=== PATIENT | female | born 1970 | race Caucasian/White ===

== ENCOUNTER 2017-10-05 19:40 | Emergency (ER) | payer SELFPAY ==
[2017-10-05] MEDS ORDERED: Lidocaine Viscous Sol 2% 15 ml UD Cup ONE (19:56)
[2017-10-05] MEDS ORDERED: Famotidine 20 MG TAB ONE (19:56)
[2017-10-05] MEDS ORDERED: Donnatal Elixir 16.2 MG/5 ML UDCUP ONE (19:56)
[2017-10-05] MEDS ORDERED: Mag-Al Plus 1200 MG/1200 MG/120 MG/30 ML UDCUP ONE (19:57)
[2017-10-05 20:34] LABS: #Basophils 0.1 thou/uL (0.0-0.2); #Eosinphils 0.5 thou/uL (0.0-0.7); #Lymphocytes 2.5 thou/uL (1.20-3.40); #Monocytes 0.4 thou/uL (0.11-0.59); %Basophils 1.6 % (0.0-1.0); %Eosinophils 6.3 % (0.0-10.0); %Lymphocytes 32.7 % (21.0-51.0); %Monocytes 5.9 % (0.0-10.0); %Neutrophils 53.6 % (42.0-75.0); Hemoglobin 14.1 g/dL (12.0-16.0); Mean Corpuscular HGB CONC 33.5 g/dL (32.0-36.0); Mean Corpuscular Hemoglobin 28.2 pg (27.0-31.0); Mean Corpuscular Volume 84.1 fL (78.0-98.0); Mean Platelet Volume 7.2 fL (7.4-10.4); Platelet Count 266 thou/uL (130-400); RBC Distribution Width 11.3 % (11.5-14.5); Red Blood Cell (RBC) Count 5.01 mill/uL (4.20-5.40); White Blood Cell (WBC) Count 7.5 thou/uL (4.8-10.8)
[2017-10-05 20:45] LABS: Prothrombin Time 13.5 SEC (12.0-14.7)
--- NOTE | 2017-10-05 20:45 | RAD ---
PA AND LATERAL VIEWS OF THE CHEST 10/05/17 HISTORY: Chest pain, nausea, heartburn. FINDINGS: The heart size is normal. The lungs are well expanded without lobar consolidation, pneumothoraces or pleural effusions. No acute osseous abnormalities are seen. IMPRESSION: No radiographic evidence of acute cardiopulmonary process. POS: [facility]
[2017-10-05 20:57] LABS: ALT (SGPT) 17 U/L (8-55); AST (SGOT) 20 U/L (5-34); Albumin 4.4 g/dL (3.5-5.0); Alkaline Phosphatase 83 U/L (40-150); Anion Gap 21 mmol/L (10-20); BUN (Urea Nitrogen) 10 mg/dL (7.0-18.7); Bilirubin, Total 0.2 mg/dL (0.2-1.2); Calc. Creatinine Clearance 0 mL/min (70-130); Calcium 8.7 mg/dL (7.8-10.44); Carbon Dioxide 20 mmol/L (22-29); Chloride 105 mmol/L (98-107); Estimated GFR-MDRD 73; Globulin 3.2 g/dL (2.4-3.5); Glucose 87 mg/dL (70-105); Potassium 3.7 mmol/L (3.5-5.1); Protein, Total 7.6 g/dL (6.0-8.3); Sodium 142 mmol/L (136-145)
[2017-10-05 20:58] LABS: CKMB 1.2 ng/mL (0-6.6); Troponin I Less than 0.010 ng/mL (< 0.028)
[2017-10-05] MEDS ORDERED: Acetaminophen 500 MG TAB ONE (21:45)
[2017-10-05] MEDS ORDERED: Ketorolac Tromethamine 30 MG/ML VIAL ONE (21:45)
== END 2017-10-05 21:57 | disposition home or self-care (01) ==
LOC: MADERS 19:40
DX: R07.89 Other chest pain (principal); K30 Functional dyspepsia; F31.9 Bipolar disorder, unspecified; F41.9 Anxiety disorder, unspecified; Z87.891 Personal history of nicotine dependence
CPT/HCPCS: 71046; 80053; 82553; 84484; 85025; 85610; 85730; 93005; 96374; J1885

== ENCOUNTER 2018-06-01 11:07 | Emergency (ER) | payer SELFPAY | END 2018-06-01 11:40 | disposition home or self-care (01) | LOC: MADERS 11:07 | DX: M25.562 Pain in left knee (principal); F41.9 Anxiety disorder, unspecified; F31.9 Bipolar disorder, unspecified; Z87.891 Personal history of nicotine dependence | CPT/HCPCS: 99281 ==

== ENCOUNTER 2019-01-15 09:33 | Emergency (ER) | payer SELFPAY ==
[2019-01-15] MEDS ORDERED: Aspirin Chewable 81 MG TAB ONE (10:01)
[2019-01-15] MEDS ORDERED: Nitroglycerin 0.4 MG TAB 1 EACH ONE (10:01)
--- NOTE | 2019-01-15 10:08 | RAD ---
2 view chest: [01/15/2019] Comparion:10/05/2017 HISTORY: Chest pain FINDINGS: Heart and mediastinal contours are grossly unremarkable. No pneumothorax or pleural fluid. No focal consolidation or alveolar edema. IMPRESSION: No acute findings.
[2019-01-15 10:15] LABS: #Basophils 0.1 thou/uL (0.0-0.2); #Eosinphils 0.1 thou/uL (0.0-0.7); #Lymphocytes 1.2 thou/uL (1.20-3.40); #Monocytes 0.3 thou/uL (0.11-0.59); #Neutrophils 3.6 thou/uL (1.40-6.50); %Eosinophils 2.8 % (0.0-10.0); %Lymphocytes 22.2 % (21.0-51.0); %Monocytes 6.3 % (0.0-10.0); %Neutrophils 67.7 % (42.0-75.0); Hemoglobin 13.3 g/dL (12.0-16.0); Mean Corpuscular HGB CONC 30.6 g/dL (32.0-36.0); Mean Corpuscular Hemoglobin 27.9 pg (27.0-31.0); Mean Corpuscular Volume 91.3 fL (78.0-98.0); Mean Platelet Volume 7.8 fL (7.4-10.4); Platelet Count 260 thou/uL (130-400); RBC Distribution Width 12.1 % (11.5-14.5); Red Blood Cell (RBC) Count 4.78 mill/uL (4.20-5.40); White Blood Cell (WBC) Count 5.3 thou/uL (4.8-10.8)
[2019-01-15 10:34] LABS: ALT (SGPT) 15 U/L (8-55); AST (SGOT) 17 U/L (5-34); Albumin 4.2 g/dL (3.5-5.0); Alkaline Phosphatase 78 U/L (40-110); Anion Gap 15 mmol/L (10-20); BUN (Urea Nitrogen) 7 mg/dL (7.0-18.7); Bilirubin, Total 0.3 mg/dL (0.2-1.2); Calc. Creatinine Clearance 0 mL/min (70-130); Calcium 7.9 mg/dL (7.8-10.44); Carbon Dioxide 28 mmol/L (22-29); Chloride 106 mmol/L (98-107); Estimated GFR-MDRD 81; Globulin 2.5 g/dL (2.4-3.5); Glucose 102 mg/dL (70-105); Potassium 4.2 mmol/L (3.5-5.1); Protein, Total 6.7 g/dL (6.0-8.3); Sodium 145 mmol/L (136-145)
[2019-01-15] MEDS ORDERED: Mag-Al Plus 1200 MG/1200 MG/120 MG/30 ML UDCUP ONE (11:33)
[2019-01-15] MEDS ORDERED: Lidocaine Viscous Sol 2% 15 ml UD Cup ONE (11:33)
== END 2019-01-15 13:21 | disposition home or self-care (01) ==
LOC: MADERS 09:33
DX: R07.9 Chest pain, unspecified (principal); K21.9 Gastro-esophageal reflux disease without esophagitis; F31.9 Bipolar disorder, unspecified; F41.9 Anxiety disorder, unspecified; Z87.891 Personal history of nicotine dependence
CPT/HCPCS: 36415; 71046; 80053; 84484; 85025; 93005

== ENCOUNTER 2020-12-03 09:07 | Emergency (ER) | payer BC ==
[2020-12-03 09:27] LABS: Bilirubin Negative (Negative); Blood, Urine Moderate (Negative); Clarity Clear (Clear); Glucose, Urine (Dipstick) Negative (Negative); Ketone, Urine Negative (Negative); Leukocyte Negative (Negative); Nitrite Negative (Negative); Protein, Urine (Dipstick) Negative (Neg-Trace); Urobilinogen 0.2 mg/dL (Less than 2)
[2020-12-03 09:37] LABS: Bacteria/HPF 1+ HPF (None Seen); WBC/HPF 0-3 HPF (0-3)
[2020-12-03 10:05] LABS: #Eosinphils 0.2 thou/uL (0.0-0.7); #Lymphocytes 1.2 thou/uL (1.20-3.40); #Monocytes 0.4 thou/uL (0.11-0.59); %Basophils 0.6 % (0.0-1.0); %Lymphocytes 13.8 % (21.0-51.0); %Neutrophils 78.6 % (42.0-75.0); Hemoglobin 14.5 g/dL (12.0-16.0); Mean Corpuscular HGB CONC 31.1 g/dL (32.0-36.0); Mean Corpuscular Hemoglobin 27.8 pg (27.0-31.0); Mean Corpuscular Volume 89.3 fL (78.0-98.0); Mean Platelet Volume 7.2 fL (7.4-10.4); Platelet Count 278 thou/uL (130-400); RBC Distribution Width 12.4 % (11.5-14.5); Red Blood Cell (RBC) Count 5.21 mill/uL (4.20-5.40); White Blood Cell (WBC) Count 8.8 thou/uL (4.8-10.8)
[2020-12-03 10:15] LABS: Anion Gap 14 mmol/L (10-20); BUN (Urea Nitrogen) 9 mg/dL (9.8-20.1); Calc. Creatinine Clearance 0 mL/min (70-130); Calcium 8.7 mg/dL (7.8-10.44); Carbon Dioxide 22 mmol/L (22-29); Chloride 108 mmol/L (98-107); Glucose 91 mg/dL (70-105); Potassium 3.9 mmol/L (3.5-5.1); Sodium 140 mmol/L (136-145)
[2020-12-03] MEDS ORDERED: Ketorolac Tromethamine 30 MG/ML VIAL ONE (10:23)
[2020-12-03] MEDS ORDERED: Sodium Chloride 0.9% 1,000 ML ONE (10:23)
[2020-12-03] MEDS ORDERED: Ciprofloxacin 500 MG TAB ONE (11:12)
[2020-12-03] MEDS ORDERED: metroNIDAZOLE 250 MG TAB ONE (11:12)
[2020-12-03 11:18] LABS: ALT (SGPT) 21 U/L (8-55); AST (SGOT) 18 U/L (5-34); Albumin 4.2 g/dL (3.5-5.0); Alkaline Phosphatase 81 U/L (40-110); Bilirubin, Direct 0.1 mg/dL (0.1-0.3); Bilirubin, Total 0.3 mg/dL (0.2-1.2); Protein, Total 7.3 g/dL (6.0-8.3)
== END 2020-12-03 12:15 | disposition home or self-care (01) ==
LOC: MADERS 09:07
DX: K52.9 Noninfective gastroenteritis and colitis, unspecified (principal); K21.9 Gastro-esophageal reflux disease without esophagitis; Z87.891 Personal history of nicotine dependence
CPT/HCPCS: 74176; 80048; 80076; 81003; 81015; 83605; 83690; 85025; 96374; J1885; J7050